=== PATIENT | male | born 1990 | race Caucasian/White ===

== ENCOUNTER 2020-08-23 01:17 | Emergency (ER) | payer SELFPAY ==
[~2020-08-23] VITALS: Ht 152.4 cm; Wt 45.0 kg
--- NOTE | 2020-08-23 01:32 | NUR ---
[facility] PT WAS FOUND NEAR [id number] AND [facility] RUN[address]ING IN THE STREET IN HIS UNDERWEAR. PT DID HAVE CLINICAL BIOCHEMIST WITH HIM AND WAS MOTIONING TOWARDS ARM WHILE STATING HE WOULD CUT HIS CARATOID IF POLICE CAME NEAR HIM. [facility] STARTED L2K. PT REFUSED TRANSPORT BY EMS DUE TO BEING WORRIED ABOUT THE BILL SO [facility] DROVE PT IN AND EMS FOLLOWED. UPON ARRIVAL TO ER PT STATES HE WAS TOLD [facility] WOULD PAY FOR THIS BILL. PT EDUCATED THAT SINCE HE IS NOT UNDER ARREST THEY WOULD NOT BE PAYING THIS BILL. PT BECAME AGGITATED AT THIS NEWS AND REFUSED TO TALK TO RN STATING "IF I KNEW THIS I WOULD NOT HAVE COME IN". PT HAS VERY ANGRY DEMEANOR AND IS SITITNG WITH ARMS CROSSED OVER HIS CHEST. WHEN ASKED IF HE HAS ANY SI THOUGHTS PT RESPONDS WITH "I PLEAD THE FITFH". MD AT BEDSIDE EXPLAINING L2K. PT STILL REFUSING TO TELL MD WHAT HAPPENED TONIGHT DUE TO BEING WORRIED ABOUT COST OF BEING HERE. PTS LAYING IN BED WITH ARMS CROSSED, PT RIPPING OFF BP CUFF AND PULSE OX IN AGRESSIVE MANNER. PT CHANGED INTO HOSPITAL GOWN, PERSONAL BELONGINGS BAGGED AND LABELED AND PLACED IN LOCKER. PT REFUSING LABS TO BE DRAWN.
--- NOTE | 2020-08-23 01:41 | NUR ---
SI PRECUATIONS IN PLACE, SITTER AT DOORWAY.
--- NOTE | 2020-08-23 02:03 | NUR ---
NOW AT ER, STATES PT DID DRINK TONIGHT BUT HAS NEVER DONE ANYTHING LIKE THIS BEFORE BUT HE DID LEAVE THE HOUSE IN HIS UNDERWEAR WHEN HE WAS SUPPOSED TO BE PICKED UP BY COWORKER. PT TOLD HE HAS VISITOR, PT STATES HE IS SINGLE, WHEN ASKED IF HE WOULD LIKE TO SEE VISITOR PT HAD NO RESPONSE. SPOKE ERP AND THEN AGREED TO SEE PT. PT UPSET WHEN SEEING STATING HE REFUSED VISITORS BUT PT HAD REFUSED TO ANSWER ABOUT VISITORS. ER SUP AT BEDSIDE STATING NO MORE VISIOTRS WILL BE ALLOWED BACK. PT CONTINUING TO REFUSE TO COOPERATIVE WITH PROCESS.
--- NOTE | 2020-08-23 02:15 | NUR ---
/MADDIE PHONE NUMBER [phone]
--- NOTE | 2020-08-23 02:17 | NUR ---
Lead Ramp Service Man RN: came to ER to check on patient and spoke with primary RN Diane and SUSIE Lu. Per pt had been drinking and left the house in his underwear with his toolbelt from his job and a coworker was going to pick him up. Per he didn't smoke or use drugs and had "never done anything like this before". stated she understood he was worried about the bill. Per RN patient was worried because patient stated the [facility] promised "to pay for my stay". RN educated that unless the patient was in custody that is usually not the case. Patient at that time refused to talk to staff. wanted to reassure him everything would be okay. Discussed allowing a visitor to patient with SUSIE, alfred sup and primary RN as patient refused to answer any questions regarding his name, birthdate (all verified by [facility] and Legal Hold) or marital status. Patient refused to answer Primary RN Diane "yes" or "no" when asked if he could have visitors. Pt was very upset and accused cutting department supervisor of "allowing anyone to visit anyone on a legal hold" and "that woman is a hazard to my health". Lead Ramp Service Man assured patient that we were not aware and that no more visitors would be allowed and cutting department supervisor asked to leave. Lead Ramp Service Man tried to calm patient and assure him he was safe and encouraged patient to talk to MD and have labs drawn and "jump through the hoops" so we could move forward in the process to help the patient be discharged if that was deemed appropriate. Patient rude to cutting department supervisor continuing to say things like "so I could just go into any legal hold's room?". Lead Ramp Service Man again apologized and said there would be no more visitors from this point on, now that we know and again encouraged patient to participate in care. Patient simply stated "Well, we'll see how long I can last without food and water." RN offered food and water, but patient stated "I'm not having that." Manuel MALDONADO, Primary RN and hemodialysis charge nurse made aware no visitors.
--- NOTE | 2020-08-23 03:04 | NUR ---
REPORT GIVEN TO BAO QUINTANILLA
--- NOTE | 2020-08-23 03:09 | NUR ---
first contact with pt. i introduced myself, pt did not respond. he is sitting on gurney. sad face. arms crossed. i informed pt to let me know when he was ready to speak with dr. no verbal response. i left the room and closed door. sitter at doorway.
--- NOTE | 2020-08-23 04:37 | NUR ---
PT SLEEPING INTERMITTANTLY. STILL NOT RESPONDING TO ASSESSMENT QUESTIONS. Addendum: 08/23/20 at 0541 by ADRIANA I AUTHORED THIS NOTE
--- NOTE | 2020-08-23 05:41 | NUR ---
PT AMBUALTED TO BATHROOM INDEPENDENTLY WITH A STEADY GAIT. STILL NOT RESPONDING TO ASSESSMENT QUESTIONS. REFUSING TO PROVIDE URINE SAMPLE TO US.
--- NOTE | 2020-08-23 06:56 | NUR ---
REPORT TO SOCORRO JOSE
--- NOTE | 2020-08-23 07:00 | NUR ---
REPORT TAKEN FROM SOCORRO SANCHEZ. PT SLEEPING AT THIS TIME ON GURNEY, RESPS EVEN AND UNLABORED. PER SOCORRO SANCHEZ, PT HAS REFUSED TO SPEAK WITH ANY PROVIDER, REFUSING ANY INTERVENTION. ORDERS TO BE PLACED ONCE PT IS ABLE TO BE ASSESSED BY PROVIDER. PT IN GOWN, BELONGINGS PLACED IN LOCKER BY PREVIOUS RN. ROOM SECURE. SITTER MONITORING FROM [facility] FOR SAFETY. CARE ASSUMED AT THIS TIME.
--- NOTE | 2020-08-23 08:47 | NUR ---
PT AWAKE, ALERT. RESPS EVEN AND UNLABORED. PT REFUSING TO ALLOW RN TO REASSESS VITAL SIGNS OR PERFORM PHSYCIAL ASSESSMENT. PT STATING HE WAS TOLD BY [facility] DEPUTIES THAT HE WOULD NOT BE BILLED FOR THIS VISIT, PT STATES "I'M NOT SUICIDAL, I WAS JUST TRYING TO GET AWAY FROM MY CRAZY ." ROOM SECURE. SITTER MONITORING FROM HALLWAY FOR SAFETY.
--- NOTE | 2020-08-23 09:42 | NUR ---
pt resting on gurney, resps even and unlabored. pt refusing breakfast and PO fluids when provided. pt refusing blanket. pt refusing to participate in discussion with staff. room secure. sitter monitoring from safety.
--- NOTE | 2020-08-23 10:15 | NUR ---
pt's friend Ana has arrived to visit pt. this RN had discussion with pt who states this friend would be a therapeutic presence, visitor educated stating that any behavioral escalation would result in termination of visit, verbalizes understanding. sitter monitoring from [facility] for safety. room secure. Pt's friend states that he has a close relationship with pt and believes he will be able to help pt feel comfortable participating in care. pt and friend conversing in calm tone at this time.
--- NOTE | 2020-08-23 10:45 | NUR ---
pt is a&o, resps even and unlabored. pt now agreeable to provide urine and blood samples for psych workup after speaking with friend. MD Becerra notified. orders entered, pt updated with POC for urine/lab then psych consult. Pt agreeable. Psych ECHOCARDIOGRAPH TECHNICIAN aware of consult.
[2020-08-23 11:07] LABS: BASOPHILS % (AUTO) 1 % (0-1); EOSINOPHILS % (AUTO) 0 % (1-7); LYMPHOCYTES % (AUTO) 16 % (22-44); MEAN CORPUSCULAR HEMOGLOBIN 31.1 pg (27.5-34.5); MEAN CORPUSCULAR HGB CONC 34.3 g/dL (33.2-36.2); MONOCYTES % (AUTO) 10 % (2-9); NEUTROPHILS % (AUTO) 73 % (42-75); PLATELET COUNT 280 x10^3/uL (130-400); RED BLOOD COUNT 5.17 x10^6/uL (4.38-5.82); RED CELL DISTRIBUTION WIDTH 13.1 % (9.4-14.8)
[2020-08-23 11:08] LABS: MD NO
[2020-08-23 11:15] LABS: ALBUMIN 4.9 g/dL (3.4-5.0); ANION GAP 5 mmol/L (5-15); CALCIUM 9.6 mg/dL (8.5-10.1); CHLORIDE 108 mmol/L (98-107)
[2020-08-23 11:27] LABS: ALANINE AMINOTRANSFERASE 32 U/L (12-78); ALKALINE PHOSPHATASE 71 U/L (45-117); BILIRUBIN,TOTAL 0.7 mg/dL (0.2-1.0); CREATININE 0.83 mg/dL (0.7-1.3); TOTAL PROTEIN 8.6 g/dL (6.4-8.2)
[2020-08-23 11:28] LABS: SALICYLATE LEVEL < 1.7 mg/dL (2.8-20.0)
--- NOTE | 2020-08-23 11:47 | NUR ---
blood drawn by tech, urine collected and sent to lab by this RN.
[2020-08-23 11:57] LABS: AMPHETAMINE SCREEN, URINE Negative (Negative); BARBITURATE SCREEN, URINE Negative (Negative); CANNABINOID SCREEN, URINE Negative (Negative); COCAINE SCREEN, URINE Negative (Negative); METHADONE SCREEN, URINE Negative (Negative); OPIATE SCREEN, URINE Negative (Negative)
[2020-08-23 12:03] LABS: BENZODIAZEPINE SCREEN, URINE Negative (Negative)
--- NOTE | 2020-08-23 12:10 | NUR ---
pt offered food and beverages multiple times, continues to decline. pt a&o, resps even and unlabored, nadn. room secure. sitter monitoring from hallway for safety. friend at bedside.
--- NOTE | 2020-08-23 12:49 | NUR ---
PT SITTING ON BED, A&O, RESPS EVEN AND UNLABORED. FRIEND ARY AT BEDSIDE. PT PROVIDED WITH WATER, DECLINES FOOD. PT AWAITING PSYCH CONTULT AND DISPO. ROOM SECURE. SITTER MONITORING FROM HALLWAY FOR SAFETY.
--- NOTE | 2020-08-23 13:32 | NUR ---
report given to psych ALEXA Easley who will assess pt shortly.
--- NOTE | 2020-08-23 13:39 | NUR ---
psych andre shah at bedside for assessment.
[2020-08-23 14:28] VITALS: BP 122/65
--- NOTE | 2020-08-23 14:29 | NUR ---
legal hold discontinued by ALEXA Easley, documented on paper charting. pt given dc instructions with numerous community resources and reccomendation for pcp and behavioral health followup. pt given clothing and belongings. friend Ana at bedside for discharge. pt denies SI, states he feels safe to discharge home. pt a&o, resps even and unlabored. pt ambulatory to dc desk with steady gait accompanied by friend. ilana at dc.
== END 2020-08-23 14:30 | disposition home or self-care (01) ==
LOC: ED 01:37
DX: R45.851 Suicidal ideations (principal); F23 Brief psychotic disorder; F43.22 Adjustment disorder with anxiety
CPT/HCPCS: 36415; 80053; 80143; 80179; 80307; 80320; 84443; 85025; 99285; G0480